=== PATIENT | female | born 1990 | race African-American/Black ===

== ENCOUNTER → 2023-12-18 | Outpatient (REF) | payer BC ==
[~2023-12-18] MED LIST: AMLODIPINE BESYL5 MG PO; HYDROXYZINE HCL10 MG PO; METHOCARBAMOL750 MG PO
== END ==
LOC: NM 08:20
PROVIDERS: ATTEND Nurse Practitioner
DX: K29.60 Other gastritis without bleeding (principal)
CPT/HCPCS: 78227; A9537